=== PATIENT | female | born 1980 | race Caucasian/White ===

== ENCOUNTER 2018-09-10 12:02 | Inpatient (IN) | payer OTHER ==
[~2018-09-10] VITALS: Ht 172.7 cm; Wt 98.0 kg
[2018-09-11] MEDS ORDERED: VITAFOL-OB+DHA1 EACH PO (00:43)
--- NOTE | 2018-09-11 05:27 | PR ---
[facility] [address] [place], [place] [address] Signed Progress Notes IP Datetime Report Generated by KENN: 09/11/2018 05:27 PROGRESS NOTES: [id number] Impression: Non-reassuring heart rate Plan: Deliver- Section Informed Consent Obtain: Section Delivery; Risks, Benefits and Alternatives Discussed VITAL SIGNS: [id number] Vital Signs: Reviewed; Within Normal Limits EXAM: [id number] Dilatation: 1.5 Effacement: 80 Station: -3 Uterine Contractions: every 2-3 minutes MEMBRANES: [id number] Membrane Status: Intact Comments: Only 1 Cytotec given with contractions every 2-3 minutes, having repetetive deep variable decels, some prolonged, no major change in cervix. Patient moved left, right, hands-knees, given O2, IV fluids, SQ Terbutaline, finally resolved decels, but no accelerations, good variability. Discussed with patient; since remote from delivery with intolerance to contractions, recommend C/S. Discussed procedure, risks, timing, questions answered. Consent signed. OR and Anesthesia called Fetus A: [id number] FHR Baseline: 145 Variability: Moderate 6-25bpm Decelerations: Variable; Prolonged Presentation: Vertex Fetus B: [id number] Signing Physician: Car El MD Copies: ~ *Electronically Signed* 09/11/18 0527 CAR EL MD PATIENT NAME: JASON CHATTERJEE CM PROGRESS NOTE DATE OF : 84 PHYSICIAN: CAR EL MD RPT #: [id number] REPORT IS CONFIDENTIAL AND NOT TO BE RELEASED WITHOUT AUTHORIZATION
--- NOTE | 2018-09-11 07:21 | NUR ---
09/11/18 0721 Jessica Wray 0651- PT ARRIVES TO [facility] ROOM 106 ALERT AND ORIENTED. PT REPORTS NO PAIN OR NAUSEA AT THIS TIME. OXYGEN SAT HIGH 90'S ON RA. PT'S S.O. AT THE BEDSIDE. CREW DISPATCHER ASSISTING WITH PT HOLDING BABY TO CHEST. RESP EVEN AND UNLABORED. IV SITE WNL AND INFUSING LR WITH 30 UNITS OF PITOCIN. 0709- PT IS REPORTING SOME DIZZINESS. PT DENIES ANY SOB, CHEST PAIN, OR OTHER SYMPTOMS. PT GIVEN COOL WASHCLOTH TO FOREHEAD. 0711- [facility] RN AT THE BEDSIDE TO ASSIST WITH BREAST FEEDING. BABY TO RIGHT BREAST. 0720- BABY TO LEFT BREAST.
--- NOTE | 2018-09-11 11:12 | NUR ---
MET WITH NEW DAD-HE IS BEAMING FROM EAR TO EAR. THIS IS THEIR FIRST CHILD, VISITORS WAITING TO SEE THE NEW ADDITION. GOD BLESS, WILL FOLLOW NEEDED
--- NOTE | 2018-09-12 11:55 | PR ---
[facility] [address] [facility] [place] [address] Signed PP Progress Notes Datetime Report Generated by CPN: 09/12/2018 11:55 SUBJECTIVE: [id number] Pain: Within normal limits Nausea/Vomiting: Denies Vital Signs: [id number] Vital Signs: Reviewed; Within Normal Limits Notable Details: PP Hgb/Hct = 10.1/30.5 EXAM: [id number] Abdomen/Uterus: Normal Lochia: Normal Extremities: Normal Incision: Normal IMPRESSION/PLAN/PROCEDURES: [id number] Impression: Normal progression Plan: Continue present management Procedures: None Progress Notes: Doing well, without complaint Signing Physician: Citlalli El MD Copies: ~ *Electronically Signed* 09/12/18 1155 CITLALLI EL MD PATIENT NAME: JASON CHATTERJEE CM PROGRESS NOTE DATE OF : 84 PHYSICIAN: CITLALLI EL MD RPT #: [id number] REPORT IS CONFIDENTIAL AND NOT TO BE RELEASED WITHOUT AUTHORIZATION
--- NOTE | 2018-09-13 11:26 | PR ---
[facility] [address] [place] [address] Signed PP Progress Notes Datetime Report Generated by CPN: 09/13/2018 11:26 SUBJECTIVE: [id number] Pain: Within normal limits Nausea/Vomiting: Denies Vital Signs: [id number] Vital Signs: Reviewed; Within Normal Limits Notable Details: PP Hgb/Hct = 10.1/30.5 EXAM: [id number] Abdomen/Uterus: Normal Lochia: Normal Extremities: Normal Incision: Normal IMPRESSION/PLAN/PROCEDURES: [id number] Impression: Normal progression Plan: Discharge Procedures: Rubella Progress Notes: Doing well, wants to go home. Signing Physician: Citlalli El MD Copies: ~ *Electronically Signed* 09/13/18 1126 ICTLALLI EL MD PATIENT NAME: JASON CHATTERJEE CM PROGRESS NOTE DATE OF : 84 PHYSICIAN: CITLALLI EL MD RPT #: [id number] REPORT IS CONFIDENTIAL AND NOT TO BE RELEASED WITHOUT AUTHORIZATION
--- NOTE | 2018-09-13 11:30 | OR ---
[facility] [address] [place], [place] [address] Signed DATE OF OPERATION: 09/11/2018 SURGEON: Car Patel MD Patient of Dr. Patel. PREOPERATIVE DIAGNOSES: Nonreassuring heart rate tracing, remote from delivery, and postdates. POSTOPERATIVE DIAGNOSES: Nonreassuring heart rate tracing, remote from delivery, and postdates. PROCEDURE: Primary low transverse segment section, delivery live female . AEROSPACE PHYSIOLOGICAL TECHNICIAN: Edinson Sheridan DO ANESTHESIA: Spinal. ESTIMATED BLOOD LOSS: 600 mL. COMPLICATIONS: None. DRAINS: Brush to bladder. FINDINGS: Live female , Apgars 8 and 9. Weight 7 pounds 5 ounces. Normal uterus with baby in LOP presentation. Nuchal cord around the neck once. Normal tubes and ovaries bilateral. DESCRIPTION OF PROCEDURE: The patient was brought to the operating room, placed in supine position. After adequate spinal anesthesia was obtained, was prepped and draped in usual sterile fashion. Brush catheter was placed in the bladder. A Pfannenstiel skin incision was made with the scalpel and extended through the subcutaneous tissue with the Bovie. The Electronically Signed By: CAR PATEL MD 09/13/18 1130 PATIENT NAME: JASON CHATTERJEE CM OPERATIVE REPORT DATE OF : 84 REPORT #: [id number] PHYSICIAN: CAR PATEL MD PCP: CAR PATEL MD REPORT IS CONFIDENTIAL AND NOT TO BE RELEASED WITHOUT AUTHORIZATION [facility] [address] [place], [place] [address] Signed fascia was nicked with scalpel and extended in transverse fashion using curved scissors. The underlying abdominal musculature was bluntly and sharply from the fascia above and below the incision. The abdominal musculature was bluntly and sharply along the midline. The peritoneum was grasped with hemostats, elevated, nicked with scissors, and extended vertical fashion using the scissors and finger dissection. The Greg self-retaining retractor was inserted into the incision and tightened in place. The lower uterine segment was identified and a small tae in the lower uterine segment made with a scalpel. Bulging bag clear fluid came from the incision. Incision was extended in transverse fashion using finger dissection. Membranes were ruptured during this. The infant's head was then easily delivered from the incision. The nuchal cord was removed from around the neck and the rest of the infant easily delivered from the incision. The cord was doubly clamped and cut. The passed off table in good condition awaiting nurse. The section of cord was saved and then the placenta manually removed and uterine cavity explored with lap pad to remove any retained membranes. An angle stitch of 0 Monocryl was placed at one end of the incision and a running locking stitch of 0 Monocryl starting at the other end used to close the incision. A 2nd running stitch of 0 Monocryl was used to imbricate the 1st layer. Good hemostasis was noted. The entire pelvis was irrigated, suctioned, examined and no bleeding areas were noted. A sheet of ACell was then placed over lower uterine segment to help with healing. The anterior wall peritoneum was then closed using running stitch of 2-0 Vicryl suture. The abdominal musculature was reapproximated using interrupted stitches of 0 Vicryl suture. The abdominal incision was then irrigated, suctioned, examined any bleeding spots cauterized with the Bovie. Powdered ACell sprinkled on the abdominal musculature to help with healing and then the fascia closed using two running stitch of 0 Vicryl suture meeting in the midline. The subcutaneous tissue was closed using interrupted stitches of 3-0 Vicryl suture. The skin was reapproximated using skin clips. The patient tolerated the procedure well, went to recovery room in good condition. The sponge, needle, instrument count correct at the end of the procedure. Car Patel MD MJB/MODL /[id number] Electronically Signed By: CAR PATEL MD 09/13/18 1130 PATIENT NAME: JASON CHATTERJEE CM OPERATIVE REPORT DATE OF : 84 REPORT #: [id number] PHYSICIAN: CAR PATEL MD PCP: CAR PATEL MD REPORT IS CONFIDENTIAL AND NOT TO BE RELEASED WITHOUT AUTHORIZATION [address] [place] [address] Signed Copies: ~ Electronically Signed By: CAR PATEL MD 09/13/18 1130 PATIENT NAME: JASON CHATTERJEE CM OPERATIVE REPORT DATE OF : 84 REPORT #: [id number] PHYSICIAN: CAR PATEL MD PCP: CAR PATEL MD REPORT IS CONFIDENTIAL AND NOT TO BE RELEASED WITHOUT AUTHORIZATION
== END 2018-09-13 14:15 | disposition home or self-care (01) | DRG 788 ==
LOC: FBC 09-11 00:01
PROVIDERS: ADMIT General Practice
PROC: 3E0P7VZ Introduction of Hormone into Female Reproductive, Via Natural or Artificial Opening (ICD-10-PCS; 2018-09-11)
PROC: 10D00Z1 Extraction of Products of Conception, Low, Open Approach (ICD-10-PCS; principal; 2018-09-11 06:07)
PROC: 3E0134Z Introduction of Serum, Toxoid and Vaccine into Subcutaneous Tissue, Percutaneous Approach (ICD-10-PCS; 2018-09-13)
DX: O76 Abnormality in fetal heart rate and rhythm complicating labor and delivery (principal); O48.0 Post-term pregnancy; Z3A.41 41 weeks gestation of pregnancy; Z37.0 Single live birth; O69.81X0 Labor and delivery complicated by cord around neck, without compression, not applicable or unspecified; O99.344 Other mental disorders complicating childbirth; F41.9 Anxiety disorder, unspecified; Z23 Encounter for immunization; Z88.0 Allergy status to penicillin; Z88.2 Allergy status to sulfonamides; Z88.8 Allergy status to other drugs, medicaments and biological substances
CPT/HCPCS: 01961; 36415; 83030; 85027; 86850; 86900; 86901; 90707; C1763; J0690; J2175; J2274; J2300; J2405; J2590; J2790; J3105; J7120

== ENCOUNTER 2022-07-04 17:57 | Day surgery (SDC) | payer OTHER ==
[~2022-07-04] VITALS: Ht 172.7 cm; Wt 70.0 kg
[~2022-07-04 17:57] MED LIST: VITAFOL-OB+DHA1 EACH PO
[2022-07-04] MEDS ORDERED: VENTOLIN HFA18 GM INH (18:13)
[2022-07-04] MEDS ORDERED: ADVAIR 100-501 EACH INH (18:13)
[2022-07-04] MEDS ORDERED: BUSPIRONE HCL15 MG (18:14)
--- NOTE | 2022-07-04 18:35 | NUR ---
Dr. Sheridan at bedside with written orders. Dr. Sheridan in room to assess pt and education given to mother in law and pt regarding POC for D&C and after care.
--- NOTE | 2022-07-04 19:15 | NUR ---
PT SITTING UP IN BED WATCHING TV, DENIES NEEDS. BEDSIDE REPORT GIVEN TO Josh NICHOLS RN
--- NOTE | 2022-07-04 19:44 | NUR ---
Patient taken back to OR by PACU nurses at 193
--- NOTE | 2022-07-04 20:31 | NUR ---
07/04/222030 Sheets,[place] 2020 PT ARRIVED TO PACU ON 6L VIA MASK, PT NONAROUSABLE AND RESP EVEN AND UNLABORED.
--- NOTE | 2022-07-04 22:05 | NUR ---
Patient discharged home. Left unit at 2140 via wheelchair to private car.
--- NOTE | 2022-07-05 06:20 | OR ---
[facility] [address] [place], [place] [address] Signed DATE OF OPERATION: 07/04/2022 SURGEON: Les Sheridan DO PREOPERATIVE DIAGNOSES: 1. Incomplete miscarriage. 2. Rh negative status post RhoGAM. POSTOPERATIVE DIAGNOSES: 1. Incomplete miscarriage. 2. Rh negative status post RhoGAM. PROCEDURES PERFORMED: Suction, dilation and curettage. ANESTHESIA: MAC. ESTIMATED BLOOD LOSS: 50 mL. SPECIMENS: Products of conception. FINDINGS: Normal external genitalia with normal clitoris, urethral meatus, bilateral [place]'s, and Bartholin's, perineal body and anus. Blood on the inner thighs and vulva. Normal appearing vagina with moderate amount of blood at the vaginal vault. The cervix was dilating with small amount of products of conception protruding through the cervical os. The remainder of products of conception were in the cervical canal. Evacuation of products of conception was uncomplicated and bleeding was minimal. COMPLICATIONS: None. INDICATIONS: Ms. Chatterjee is a very pleasant 41-year-old G3, P1-0-1-1 female, who presented yesterday complaining of cramping and bleeding in early . An ultrasound was performed that demonstrated a single nonviable intrauterine with no cardiac activity measuring 8 weeks 2 days gestation. The patient would have been approximately 10.5 Electronically Signed By: LES SHERIDAN DO (JD) 07/05/22 0620 PATIENT NAME: JASON CHATTERJEE PRUDENCIO OPERATIVE REPORT DATE OF : 84 REPORT #: [id number] PHYSICIAN: LES SHERIDAN (ANNALISE) DO PCP: SARAH GARDNER PA-C REPORT IS CONFIDENTIAL AND NOT TO BE RELEASED WITHOUT AUTHORIZATION [facility] [address] [place], [place] [address] Signed weeks gestation by LMP. The patient had spotting that increased to bleeding and cramping. She is seen in the office and we discussed ultrasound findings, indications, options for management of incomplete SAB and she received RhoGAM yesterday. The patient strongly desired suction D and C. Risks, benefits, and alternatives were discussed in detail with the patient. The patient understands and wished to proceed with the procedure. TECHNIQUE: The patient was taken to the operating room where a time-out was performed to confirm correct patient and correct procedure. MAC anesthesia was adequately established. The patient was prepped and draped in dorsal lithotomy position with feet in Yellofin stirrups. The patient received doxycycline 200 mg p.o. 1 hour preoperatively per SCIP protocol and no heparin was indicated. The bladder was drained. A weighted speculum was placed in the vagina and the anterior lip of the cervix was grasped with Allis clamp. The cervix was noted to be very thin and dilating with a small amount of products of conception at the cervical os. On bimanual exam, a large bulge in the cervical canal consistent with impending miscarriage and the uterus felt involuted. The cervix was gently dilated using Hegar dilators to #13. A #12 curved curette was gently passed through the cervix into the dilated cervical canal and suction was applied to the green zone. Products of conception were evacuated from the cervix. Bleeding was minimal. Bimanual exam was performed to assess for position of the fundus. A sharp curved curette was gently introduced into the uterine cavity and probed to evaluate for any remaining products of conception. No additional products of conception were noted. One final pass using the 12 curved suction curette was performed, at this time advancing gently to the fundus. No additional products of conception were noted and the uterus was hemostatic. The patient did receive Pitocin per protocol. Weighted speculum was removed and the Allis clamp was removed. The patient was taken to PACU in good and stable condition. Sponge, needle, and instrument count was correct x2 at the end of procedure. DO TREMAYNE Fernandez/MODL /[id number] Electronically Signed By: LES SHERIDAN DO (JD) 07/05/22 0620 PATIENT NAME: JASON CHATTERJEE CM OPERATIVE REPORT DATE OF : 84 REPORT #: [id number] PHYSICIAN: LES SHERIDAN DO (JD) PCP: SARAH GARDNER PA-C REPORT IS CONFIDENTIAL AND NOT TO BE RELEASED WITHOUT AUTHORIZATION [address] [place] [address] Signed Copies: ~ Electronically Signed By: LES SHERIDAN DO (JD) 07/05/22 0620 PATIENT NAME: JASON CHATTERJEE CM OPERATIVE REPORT DATE OF : 84 REPORT #: [id number] PHYSICIAN: LES SHERIDAN) PCP: SARAH GARDNER PA-C REPORT IS CONFIDENTIAL AND NOT TO BE RELEASED WITHOUT AUTHORIZATION
--- NOTE | 2022-07-09 12:34 | PATH ---
[facility] [address] [place], [place] [address] Signed SPECIMEN(S): A PRODUCTS OF CONCEPTION SPECIMEN SOURCE: A. PRODUCTS OF CONCEPTION CLINICAL HISTORY: Incomplete miscarriage. DC. FINAL PATHOLOGIC DIAGNOSIS: Products of conception: - Immature chorionic villi, membranes and decidualized endometrium, consistent with clinical incomplete miscarriage. JVR:srini:C2NR MICROSCOPIC EXAMINATION: Histologic sections of all submitted blocks are examined by light microscopy. These findings, together with the gross examination, support the pathologic diagnosis. GROSS DESCRIPTION: The specimen, labeled and designated "Hext, products of conception," is received in formalin and consists of irregular shaped, membranous and hemorrhagic tissue fragments that aggregate measure 7.5 x 7.0 x 1.4 cm. The tissue is not grossly identified. [employer] sections are submitted in (A1-A3). JS (under the direct supervision of a pathologist) The Gross Description was prepared using a voice recognition system. The report was reviewed for accuracy; however, sound-alike word errors, addition and/or deletions may occur. If there is any question about this report, please contact Client Services. PERFORMING LABORATORY: The technical component was performed by [employer], [address] [place] [id number] (CLIA# [id number]). Professional interpretation was performed by [email or web address], [address] [place] [id number] (CLIA#: [id number]). Diagnostician: Jaiden Mckinley MD Pathologist Electronically Signed 07/09/2022 PATIENT NAME: JASON CHATTERJEE PATHOLOGY DATE OF : 84 REPORT #: [id number] PHYSICIAN: CONSTANTINO ALEXANDER PCP: SARAH GARDNER PA-C REPORT IS CONFIDENTIAL AND NOT TO BE RELEASED WITHOUT AUTHORIZATION [address] [place], [place] [address] Signed Copies: ~ PATIENT NAME: JASON CHATTERJEE CM PATHOLOGY DATE OF : 84 REPORT #: [id number] PHYSICIAN: CONSTANTINO PATHOLOGY PCP: SARAH GARDNER PA-C REPORT IS CONFIDENTIAL AND NOT TO BE RELEASED WITHOUT AUTHORIZATION
== END 2022-07-04 21:40 | disposition home or self-care (01) ==
LOC: FBCO 17:57 → FBC 17:58 → FBCO 21:40
PROVIDERS: ATTEND Obstetrics & Gynecology
PROC: 10D17ZZ Extraction of Products of Conception, Retained, Via Natural or Artificial Opening (ICD-10-PCS; principal; 2022-07-04 20:00)
DX: O03.4 Incomplete spontaneous abortion without complication (principal); Z88.2 Allergy status to sulfonamides; Z88.0 Allergy status to penicillin; Z88.8 Allergy status to other drugs, medicaments and biological substances
CPT/HCPCS: 36415; 85027; 86850; 86870; 86900; 86901; J0131; J1100; J1885; J2001; J2250; J2405; J2704; J3010